=== PATIENT | female | born 1980 | race Caucasian/White ===

== ENCOUNTER 2019-03-04 15:21 | Observation (INO) ==
[2019-03-04] MEDS ORDERED: 0.9 % Sodium Chloride 1,000 ML IV ONE (16:26)
[2019-03-04 17:18] LABS: Basophils % 0.4 %; Eosinophils # 0.1 K/mcL (0.0-0.6); Eosinophils % 1.3 %; Hematocrit 40.5 % (35.3-44.9); Hemoglobin 12.6 g/dL (11.5-15.4); Immature Granulocytes % 0.4 % (0-4); Lymphocytes # 1.8 K/mcL (0.6-4.6); Lymphocytes % 23.6 %; Mean Corpuscular HGB Conc 31.1 g/dL (31.6-35.5); Mean Corpuscular Hemoglobin 27.9 pg (28.0-33.3); Mean Corpuscular Volume 89.8 fL (83.0-100.0); Mean Platelet Volume 8.1 fL (9.4-12.4); Monocytes # 0.5 K/mcL (0.0-1.3); Neutrophils # 5.1 K/mcL (1.6-8.9); Platelet Count 296 K/mcL (140-400); Red Blood Count 4.51 M/mcL (3.82-4.97); Red Cell Distribution Width 14.1 % (11.5-14.5); Segmented Neutrophils % 67.3 %; White Blood Count 7.6 K/mcL (4.3-11.1)
[2019-03-04 17:25] LABS: Bilirubin,Urine Negative (Negative); Blood,Urine Negative (Negative); Clarity,Urine Cloudy (Clear); Color,Urine Yellow (Yellow); Glucose,Urine (UA) Normal (Normal); Ketones,Urine Negative (Negative); Leukocyte Esterase,Urine Trace (Negative); Nitrite,Urine Negative (Negative); PH,Urine 6.5 pH Units (5.0-8.0); Protein,Urine Negative (Neg-Trace); Specific Gravity,Urine 1.012 (1.010-1.025)
[2019-03-04 17:27] LABS: Activated Partial Thrombo Time 33.2 Seconds (26.0-36.0)
[2019-03-04 17:28] LABS: Bacteria,Urine None Seen per hpf (None-Few); Hyaline Casts,Urine None Seen per lpf (None-Few); RBC,Urine 0-3 per hpf (0-3); Squamous Epithelial Cell,Urine Moderate per lpf (None-Few); WBC,Urine 0-3 per hpf (0-3)
[2019-03-04 17:34] LABS: Amphetamine Screen,Urine Positive ng/mL (Cutoff=1000); Barbiturate Screen,Urine Negative ng/mL (Cutoff=200); Benzodiazepines Screen,Urine Negative ng/mL (Cutoff=200); Cannabinoid Screen,Urine Negative ng/mL (Cutoff = 50); Cocaine Screen,Urine Positive ng/mL (Cutoff= 300); Opiate Screen,Urine Negative ng/mL (Cutoff=300); Phencyclidine Screen,Urine Negative ng/mL (Cutoff=25)
[2019-03-04 17:38] LABS: Alanine Aminotransferase 18 Units/L (7-52); Albumin 3.5 g/dL (3.5-5.7); Albumin/Globulin Ratio 0.9 (1.1-2.2); Alkaline Phosphatase 172 Units/L (34-104); Aspartate Amino Transferase 19 Units/L (13-39); BUN/Creatinine Ratio 22 (6-26); Bilirubin,Indirect 0.4 mg/dL (0.0-1.0); Bilirubin,Total 0.4 mg/dL (0.3-1.0); Blood Urea Nitrogen 12 mg/dL (6-20); Calcium 9.4 mg/dL (8.6-10.3); Carbon Dioxide 24 mEq/L (23-29); Chloride 104 mEq/L (98-107); Ethanol < 10 mg/dL (Less than 10); Globulin 4.1 g/dL (2.4-3.5); Glucose 85 mg/dL (70-105); Osmolality,Calculated 287 (280-300); Potassium 3.9 mEq/L (3.5-5.1); Sodium 139 mEq/L (136-145); Total Protein 7.6 g/dL (6.4-8.9); eGFR For African Americans > 60 (> 60); eGFR For Non-African Americans > 60 (> 60)
[2019-03-05 00:45] LABS: Thyroid Stimulating Hormone 2.978 mcIU/mL (0.340-5.600)
[2019-03-05] MEDS ORDERED: Ringers Solution, Lactated 1,000 ML IVC SCH (02:00)
[2019-03-05] MEDS ORDERED: Acetaminophen 325 MG TABLET PO PRN (02:01)
[2019-03-05] MEDS ORDERED: Ondansetron 4 MG/2 ML VIAL IVP PRN (02:01)
[2019-03-05] MEDS ORDERED: *HR* Heparin 5,000 UNIT/ML VIAL SQ SCH (06:00)
[2019-03-05 11:20] VITALS: BP 118/85
[2019-03-06] MEDS ORDERED: Aspirin Enteric Coated 81 MG Tablet PO SCH (09:00)
== END 2019-03-05 14:29 | disposition short-term general hospital (02) ==
LOC: 2ANU 15:21 → EMEROOARM 15:21 → SUATTDRO 03-05 00:39 → 2ANU 03-05 01:31
PROVIDERS: ADMIT Internal Medicine; ATTEND Internal Medicine

== ENCOUNTER 2019-05-05 19:40 | Observation (INO) ==
[2019-05-05] MEDS ORDERED: Ondansetron ODT 4 MG TAB.RAPDIS SL PRN (22:22)
[2019-05-05] MEDS ORDERED: Naloxone 0.4 MG/ML INJ IVP PRN (22:22)
[2019-05-05 23:43] LABS: Basophils % 0.7 %; Eosinophils # 0.2 K/mcL (0.0-0.6); Eosinophils % 2.7 %; Hematocrit 42.8 % (35.3-44.9); Hemoglobin 13.6 g/dL (11.5-15.4); Immature Granulocytes % 0.2 % (0-4); Lymphocytes # 2.6 K/mcL (0.6-4.6); Lymphocytes % 45.4 %; Mean Corpuscular HGB Conc 31.8 g/dL (31.6-35.5); Mean Corpuscular Hemoglobin 28.3 pg (28.0-33.3); Mean Platelet Volume 9.1 fL (9.4-12.4); Monocytes # 0.4 K/mcL (0.0-1.3); Monocytes % 7.5 %; Neutrophils # 2.5 K/mcL (1.6-8.9); Platelet Count 246 K/mcL (140-400); Red Blood Count 4.81 M/mcL (3.82-4.97); Red Cell Distribution Width 13.5 % (11.5-14.5); Segmented Neutrophils % 43.5 %; White Blood Count 5.6 K/mcL (4.3-11.1)
[2019-05-06 00:02] LABS: BUN/Creatinine Ratio 29 (6-26); Blood Urea Nitrogen 13 mg/dL (6-20); Calcium 9.3 mg/dL (8.6-10.3); Carbon Dioxide 24 mEq/L (23-29); Chloride 106 mEq/L (98-107); Glucose 94 mg/dL (70-105); Osmolality,Calculated 284 (280-300); Potassium 4.4 mEq/L (3.5-5.1); Sodium 137 mEq/L (136-145); eGFR For African Americans > 60 (> 60); eGFR For Non-African Americans > 60 (> 60)
[2019-05-06] MEDS ORDERED: Nicotine 14 MG PATCH.TD24 TD PRN (03:19)
[2019-05-06] MEDS: *HR* Heparin 5,000 UNIT/ML VIAL SQ SCH ×2 (06:15→18:49)
[2019-05-06 06:18] LABS: Amphetamine Screen,Urine Negative ng/mL (Cutoff=1000); Barbiturate Screen,Urine Negative ng/mL (Cutoff=200); Benzodiazepines Screen,Urine Negative ng/mL (Cutoff=200); Cannabinoid Screen,Urine Negative ng/mL (Cutoff = 50); Cocaine Screen,Urine Negative ng/mL (Cutoff= 300); Opiate Screen,Urine Negative ng/mL (Cutoff=300); Phencyclidine Screen,Urine Negative ng/mL (Cutoff=25)
[2019-05-06] MEDS: Aspirin 81 MG TAB.CHEW PO SCH (09:14)
[2019-05-07 03:46] LABS: Hematocrit 42.6 % (35.3-44.9); Hemoglobin 13.6 g/dL (11.5-15.4); Mean Corpuscular HGB Conc 31.9 g/dL (31.6-35.5); Mean Corpuscular Volume 87.7 fL (83.0-100.0); Mean Platelet Volume 9.3 fL (9.4-12.4); Platelet Count 262 K/mcL (140-400); Red Blood Count 4.86 M/mcL (3.82-4.97); Red Cell Distribution Width 13.4 % (11.5-14.5); White Blood Count 5.1 K/mcL (4.3-11.1)
[2019-05-07] MEDS: *HR* Heparin 5,000 UNIT/ML VIAL SQ SCH ×2 (05:00→17:24)
[2019-05-07] MEDS: Acetaminophen 325 MG TABLET PO PRN (05:07)
[2019-05-07] MEDS: Aspirin 81 MG TAB.CHEW PO SCH (09:12)
[2019-05-07] MEDS: Pregabalin 75 MG CAPSULE PO SCH ×2 (16:12→21:23)
[2019-05-08] MEDS: *HR* Heparin 5,000 UNIT/ML VIAL SQ SCH ×2 (05:19→16:39)
[2019-05-08] MEDS ORDERED: Methyl Salicylate/Menthol 57 APPL/57 GM TUBE TP PRN (08:55)
[2019-05-08] MEDS: Pregabalin 75 MG CAPSULE PO SCH ×3 (09:50→19:28)
[2019-05-08] MEDS: Aspirin 81 MG TAB.CHEW PO SCH (09:50)
[2019-05-09] MEDS: *HR* Heparin 5,000 UNIT/ML VIAL SQ SCH ×2 (05:32→16:48)
[2019-05-09] MEDS: Aspirin 81 MG TAB.CHEW PO SCH (07:56)
[2019-05-09] MEDS: Pregabalin 75 MG CAPSULE PO SCH ×3 (07:56→20:05)
[2019-05-09] MEDS: Acetaminophen 325 MG TABLET PO PRN (12:50)
[2019-05-10] MEDS: *HR* Heparin 5,000 UNIT/ML VIAL SQ SCH (06:16)
[2019-05-10] MEDS: Pregabalin 75 MG CAPSULE PO SCH ×2 (08:53→16:21)
[2019-05-10] MEDS: Aspirin 81 MG TAB.CHEW PO SCH (08:53)
[2019-05-10] MEDS: *HR* HYDROcodone/Acet 5/325 mg TABLET PO PRN ×2 (09:08→16:21)
[2019-05-10 12:27] VITALS: BP 106/69
== END 2019-05-10 16:48 ==
LOC: EMEROOARM 19:40 → 3BNU 19:40 → SUATTDRO 20:52 → 3BNU 22:08
PROVIDERS: ADMIT Family Medicine; ATTEND Internal Medicine